=== PATIENT | male | born 1975 | race Two or more races ===

== ENCOUNTER 2021-04-09 08:54 | Outpatient (CLI) | payer OTHER | END 2021-04-09 09:10 | disposition home or self-care (01) | LOC: LAB 08:54 | DX: E03.8 Other specified hypothyroidism (principal); E78.49 Other hyperlipidemia; I11.9 Hypertensive heart disease without heart failure; E11.9 Type 2 diabetes mellitus without complications; R97.0 Elevated carcinoembryonic antigen [CEA]; R19.5 Other fecal abnormalities; N40.0 Benign prostatic hyperplasia without lower urinary tract symptoms ==

== ENCOUNTER 2021-04-09 09:01 | Outpatient (CLI) | payer OTHER | END 2021-04-09 09:03 | disposition home or self-care (01) | LOC: NUCLEAR 09:01 | DX: R00.0 Tachycardia, unspecified (principal); R07.89 Other chest pain; I11.9 Hypertensive heart disease without heart failure; I49.8 Other specified cardiac arrhythmias ==

== ENCOUNTER 2021-04-09 09:38 | Outpatient (CLI) | payer OTHER | END 2021-04-09 09:49 | disposition home or self-care (01) | LOC: MRI 09:38 | DX: G93.89 Other specified disorders of brain (principal) | CPT/HCPCS: 70545 ==

== ENCOUNTER 2021-04-19 07:36 | Outpatient (CLI) | payer OTHER | END 2021-04-19 07:37 | disposition home or self-care (01) | LOC: NUCLEAR 07:36 | DX: I11.9 Hypertensive heart disease without heart failure (principal); R00.0 Tachycardia, unspecified; R07.89 Other chest pain | CPT/HCPCS: 78452; 93017; A9500 ==

== ENCOUNTER 2024-04-08 05:30 | Day surgery (SDC) | payer OTHER ==
[2024-04-05 10:20] LABS: HEMATOCRIT 42.3 % (39.0-48.0); HEMOGLOBIN 14.3 g/dL (13-16.00); MEAN CELL VOLUME 88.5 fL (80.0-100.00); MEAN CORPUSCULAR HGB CONC 33.9 g/dl (32.0-36.0); PLATELET COUNT 164 K/uL (150-450); RED BLOOD COUNT 4.78 M/uL (4.00-6.00); RED CELL DISTRIBUTION WIDTH 13.3 % (11.5-14.5)
[2024-04-05 10:24] LABS: URINE APPEARANCE Clear; URINE BILIRRUBIN Negative (NEGATIVE); URINE BLOOD Negative; URINE COLOR Yellow; URINE GLUCOSE Negative (NEGATIVE); URINE KETONE Negative (NEGATIVE); URINE LEUKOCYTE Negative; URINE NITRATE Negative; URINE PROTEIN Negative (NEGATIVE); URINE UROBILINOGEN 0.2 E.U./dl
[2024-04-05 10:29] LABS: URINE BACTERIA 1.2 uL (0.0-1933); URINE EPITHELIAL CELLS 0.4 uL (0.0-38.8); URINE RBC 0.1 uL (0.0-20.8); URINE WBC 0.2 uL (0.0-23.2)
[2024-04-05 11:09] LABS: INR 1.06; PARTIAL THROMBOPLASTIN TIME 30.7 SECONDS (22.0-34.0); PROTHROMBIN TIME 11.5 SECONDS (9.0-11.5)
[2024-04-05 11:16] LABS: BILIRUBIN TOTAL 0.48 mg/dL (0.3-1.2); CALCIUM 9.4 mg/dL (8.5-10.1); CREATININE SERUM 1.38 mg/dL (0.70-1.30); GFR 54.76; GLOBULINA 3.6 G/DL (2.4-3.5); POTASSIUM 4.36 mEq/L (3.5-5.1); TOTAL PROTEIN 7.6 gm/dL (6.4-8.2)
[~2024-04-08 05:30] MED LIST: COZAAR25 MG PO; TOPROL XL25 M1 PO
[2024-04-08] MEDS ORDERED: CEFAZOLIN SODIUM 1,000 MG VIAL ONE (09:19)
[2024-04-08] MEDS ORDERED: BUPIVACAINE HCL/Mpf 0.5% 10ML VIAL ONE (10:47)
[2024-04-08] MEDS ORDERED: MORPHINE SULFATE 4 MG/ML VIAL IV ONE ×2 (11:35→12:05)
[2024-04-08] MEDS ORDERED: ONDANSETRON HCL 2 MG/ML VIAL ONE (11:48)
== END 2024-04-08 14:20 | disposition home or self-care (01) ==
LOC: CIR.AMB 05:30
PROVIDERS: ATTEND Surgery
DX: K80.10 Calculus of gallbladder with chronic cholecystitis without obstruction (principal); K43.9 Ventral hernia without obstruction or gangrene; I10 Essential (primary) hypertension